=== PATIENT | male | born 1985 | race American Indian/Alaskan Native ===

== ENCOUNTER 2016-12-11 07:37 | Emergency (ER) | payer SELFPAY ==
[~2016-12-11] VITALS: Ht 162.6 cm; Wt 82.6 kg
[2016-12-11 07:52] VITALS: BP 141/85
[2016-12-11] MEDS ORDERED: DIPHTH,PERTUSS(ACELL),TET TOX 0.5 ML DISP.SYRIN. VAX IM ONE (08:00)
[2016-12-11] MEDS ORDERED: TRAM-48 PO (08:05)
[2016-12-11] MEDS ORDERED: SULF1TAB24 PO (08:05)
--- NOTE | 2016-12-11 08:05 | PHYS DOC ---
Adult General Chief Complaint Chief Complaint: INSECT BITE [facility] HPI Patient is a 30 year old male with no significant medical history who presents with an insect bite of the right lower lateral abdomen that began 3 days ago. Patient also states he has symptoms of upper respiratory infection including congestion and subjective fevers at night. Review of Systems Review of Systems Constitutional: Subjective fevers Eyes: Denies change in visual acuity, redness, or eye pain [] HENT: Nasal congestion Respiratory: Denies cough or shortness of breath [] Cardiovascular: No additional information not addressed in HPI [] GI: Denies abdominal pain, nausea, vomiting, bloody stools or diarrhea [] : Denies dysuria or hematuria [] Musculoskeletal: Denies back pain or joint pain [] Integument: Right lateral lower abdomen insect bite Neurologic: Denies headache, focal weakness or sensory changes [] Endocrine: Denies polyuria or polydipsia [] Physical Exam Physical Exam Constitutional: Well developed, well nourished, no acute distress, non-toxic appearance. [] HENT: Normocephalic, atraumatic, bilateral external ears normal, oropharynx moist, no oral exudates, nose normal. [] Eyes: PERRLA, EOMI, conjunctiva normal, no discharge. [] Neck: Normal range of motion, no tenderness, supple, no stridor. [] Cardiovascular:Heart rate regular rhythm, no murmur [] Lungs & Thorax: Bilateral breath sounds clear to auscultation [] Abdomen: Bowel sounds normal, soft, no tenderness, no masses, no pulsatile masses. [] Skin: Right lateral lower abdomen with an area of cellulitis approximately 13 x 7 cm. There is an open peeled off skin in the center of this cellulitis with no drainage. There is no fluctuance to the area. The area is warm tender to palpate Back: No tenderness, no CVA tenderness. [] Extremities: No tenderness, no cyanosis, no clubbing, ROM intact, no edema. [] Neurologic: Alert and oriented X 3, normal motor function, normal sensory function, no focal deficits noted. [] Psychologic: Affect normal, judgement normal, mood normal. [] EKG EKG [] Radiology/Procedures Radiology/Procedures [] Course & Med Decision Making Course & Med Decision Making Pertinent Labs and Imaging studies reviewed. (See chart for details) Patient is in the ED with an area of cellulitis of the right lower abdomen suspicious from an insect bite. Patient was given tetanus in the ED. He was discharged on Bactrim. He also has symptoms of upper respiratory infection. Encouraged him to take [id number] cold medicines. Discharged with Ultram for pain. Provided return precautions. Discharged in stable condition. Dragon Disclaimer Dragon Disclaimer This electronic medical record was generated, in whole or in part, using a voice recognition dictation system. Departure Departure Impression: Primary Impression: Cellulitis of abdominal wall Additional Impressions: Upper respiratory infection Fever Disposition: HOME, SELF-CARE Condition: STABLE Patient Instructions: Cellulitis, Upper Respiratory Infection, Adult Additional Instructions: You were seen with a skin infection. Take the prescribed antibiotics until completed. Follow-up with your doctor in 1-2 weeks. Come back to the ED if symptoms worsen. Continue taking [id number] medications for cold symptoms. Scripts Tramadol Hcl (ULTRAM) 50 Mg Tablet 1 TAB PO Q6HRS, #30 TAB Prov: VIRAJ HAWKINS APRN 12/11/16 Sulfamethoxazole/Trimethoprim (BACTRIM DS TABLET) 1 Each Tablet 1 TAB PO BID, #20 TAB Prov: VIRAJ HAWKINS APRN 12/11/16 Problem Qualifiers Additional Impressions: Upper respiratory infection URI type: unspecified URI Qualified Codes: J06.9 - Acute upper respiratory infection, unspecified Fever Fever type: unspecified Qualified Codes: R50.9 - Fever, unspecified VIRAJ HAWKINS APRN Dec 11, 2016 08:05
== END 2016-12-11 08:45 | disposition home or self-care (01) ==
LOC: ER 07:37
DX: L03.311 Cellulitis of abdominal wall (principal); J06.9 Acute upper respiratory infection, unspecified; R50.9 Fever, unspecified; S30.861A Insect bite (nonvenomous) of abdominal wall, initial encounter; W57.XXXA Bitten or stung by nonvenomous insect and other nonvenomous arthropods, initial encounter; Y93.89 Activity, other specified; Y99.8 Other external cause status; Y92.89 Other specified places as the place of occurrence of the external cause
CPT/HCPCS: 90471; 90715; 99283-25